=== PATIENT | female | born 1945 | race African-American/Black ===

== ENCOUNTER 2017-07-10 08:45 | Outpatient (CLI) | payer MEDICARE ==
--- NOTE | 2017-07-11 13:55 | Mammography Report ---
BILATERAL DIGITAL SCREENING MAMMOGRAM with CAD : 07/10/17 08:45:00 CLINICAL: Routine screening. COMPARISON:05/05/09 FINDINGS: The breasts are heterogeneously dense, which may obscure small masses.Bilateral benign vascular calcifications. No mass, architectural distortion or suspicious calcifications. IMPRESSION: No mammographic evidence of malignancy. BI-RADS CATEGORY: 2 -- Benign RECOMMENDATION: Routine mammographic screening in one year. COMMENT: Patient follow-up letters are generated by our [employer] application.
== END 2017-07-10 08:46 | disposition home or self-care (01) ==
LOC: MAMMO 08:45
PROVIDERS: ATTEND Internal Medicine
DX: Z12.31 Encounter for screening mammogram for malignant neoplasm of breast (principal)
CPT/HCPCS: 77067

== ENCOUNTER 2018-11-01 12:56 | Outpatient (CLI) | payer MEDICARE ==
--- NOTE | 2018-11-01 13:32 | XRay Report ---
CHEST 2 VIEWS INDICATION: COUGH(R05). COMPARISON: None FINDINGS: Support devices: 2-lead pacemaker device appears in good position. Heart: Within normal limits. Lungs/pleura: No acute air space or interstitial disease. No pneumothorax. Additional findings: None. IMPRESSION: No acute cardiopulmonary process is identified. Signer Name: Chapo Bertrand Jr, MD Signed: 11/01/2018 1:27 PM Workstation Name: [id number]
== END 2018-11-01 12:57 | disposition home or self-care (01) ==
LOC: XRAY 12:56
PROVIDERS: ATTEND Internal Medicine
DX: R05 Cough (principal); Z95.0 Presence of cardiac pacemaker
CPT/HCPCS: 71046

== ENCOUNTER 2020-03-25 13:32 | Outpatient (CLI) | payer MEDICARE ==
--- NOTE | 2020-03-25 14:29 | XRay Report ---
CERVICAL SPINE 4 VIEWS INDICATION: NECK / BACK PAIN. COMPARISON: None. IMPRESSION: Normal alignment. Moderate degenerative disc disease is identified at C5-6 and C6-7. Th e remaining levels are unremarkable. No acute osseous or soft tissue abnormality. Signer Name: Chapo Bertrand Jr, MD Signed: 03/25/2020 2:24 PM Workstation Name: [id number]
== END 2020-03-25 13:33 | disposition home or self-care (01) ==
LOC: XRAY 13:32
PROVIDERS: ATTEND Internal Medicine
DX: M47.812 Spondylosis without myelopathy or radiculopathy, cervical region (principal)
CPT/HCPCS: 72040